=== PATIENT | female | born 1995 | race Caucasian/White ===

== ENCOUNTER 2017-12-24 15:38 | Emergency (ER) | payer OTHER ==
[~2017-12-24] VITALS: Ht 157.5 cm; Wt 75.3 kg
[2017-12-24] MEDS ORDERED: [UNRECOGNIZED DRUG - OTHER] (16:00)
== END 2017-12-24 16:33 | disposition home or self-care (01) ==
LOC: ER 15:38
DX: T19.2XXA Foreign body in vulva and vagina, initial encounter (principal); W45.8XXA Other foreign body or object entering through skin, initial encounter; Y93.89 Activity, other specified; Y92.89 Other specified places as the place of occurrence of the external cause; Y99.8 Other external cause status